=== PATIENT | male | born 1990 | race Caucasian/White ===

== ENCOUNTER 2016-11-12 16:11 | Emergency (ER) | payer SELFPAY ==
[~2016-11-12] VITALS: Ht 165.1 cm; Wt 89.0 kg
[2016-11-12 16:11] VITALS: Ht 165.1 cm; Wt 89.0 kg
--- NOTE | 2016-11-12 16:47 | ERA ---
ER Documentation Chief Complaint Date/Time DATE: 11/12/16 TIME: 16:08. Immediately upon arrival Chief Complaint HPI History is extremely limited due to the patient's clinical condition and is obtained from paramedics. 26-year-old male with no known past medical history, last seen by family at 15: 20 was found at hanging by his neck on a yellow rope from a beam in the garage at 15:40. Family cut him down called 911 and started chest compressions. When paramedics arrived the patient was apneic, pulseless in PEA. CPR was initiated with closed chest compressions, endotracheal intubation, bagged ventilations and a total of 4 mg of intravenous epinephrine. Accu-Chek was 44 mg/dL and 1 amp of D50 was given. En route the patient had a transitory ROSC lasting approximately 1 minute. On arrival to the ED he is pulseless with closed chest compressions and assisted ventilations in progress. ROS Unobtainable due to the patient's clinical condition Medications Home Meds Unable to Obtain Active Prescriptions or Reported Meds Allergies Allergies: Coded Allergies: Unknown: Unable to obtain (Unverified , 11/12/16) PMhx/Soc As per family. Hx Neurological Disorder: No Hx Respiratory Disorders: No Hx Cardiac Disorders: No Hx Psychiatric Problems: No Hx Miscellaneous Medical Probl: No Hx Alcohol Use: No Hx Substance Use: No Hx Tobacco Use: No Smoking Status: Never smoker FmHx As per family no sudden cardiac or cancer Physical Exam Vitals Vital Signs Date Time Temp Pulse Resp B/P Pulse Ox O2 Delivery O2 Flow Rate FiO2 11/12/16 16:11 0 0/ 99 Physical Exam Const: Unresponsive, [place] Coma Scale 3 Head: Atraumatic Eyes: Pupils dilated and unreactive. ENT: Normal External Ears, Nose and Mouth. Neck: Cervical collar in place. Ligature rocha on the upper neck. Resp: Breath sounds are equal with bagged ventilation via the ET tube Cardio: No heart sounds Abd: Soft, non distended. : External genitalia grossly normal. No priapism. Skin: Cyanotic, dependent lividity. Ext: No edema or deformity. Interosseous line left lower extremity. Neur: Unresponsive. [place] Coma Scale 3 Physical examination is limited and truncated due to the constraints imposed by the patient's clinical condition. Procedures/MDM DOCUMENTS REVIEWED: EMS record, no prior records available. ED COURSE: Cardiopulmonary Resuscitation by me: See code documentation for specific details. ACLS and BLS were performed with high quality chest compressions and minimal interruptions. Reversible causes were assessed and treated. MEDICAL DECISION MAKIN-year-old male with no known past medical history, last seen by family at 15:20 was found at hanging by his neck by a yellow rope from a beam in the garage at 15:40. Paramedics found the patient apneic and in PEA. CPR was initiated using ACLS protocol, patient was intubated and received a total of 4 mg of intravenous epinephrine. On arrival he is apneic in PEA. Despite high quality chest compressions and CPR using ACLS protocol the patient remained in PEA and was declared at 14:28. Family informed. [employer] at bedside. [employer] contacted. Counseled family. human resources services specialist assisted. Father states his son was distraught over inability to find employment. Time of : 14:28 [employer] case #: [id number] Departure Diagnosis: Primary Impression: Cardiac arrest Additional Impression: Hanging Qualified Code: T71.164A - Hanging, initial encounter Condition: Critical ALESHA CARRERA MD Nov 12, 2016 16:47
== END 2016-11-12 17:37 | disposition expired ==
LOC: E/R 16:11
DX: I46.9 Cardiac arrest, cause unspecified (principal); T71.164A Asphyxiation due to hanging, undetermined, initial encounter
CPT/HCPCS: 92950; 99285